=== PATIENT | female | born 1965 | race Caucasian/White ===

== ENCOUNTER 2016-05-23 05:37 | Day surgery (SDC) | payer OTHER ==
[~2016-05-23] VITALS: Ht 170.2 cm; Wt 85.3 kg
--- NOTE | ~2016-05-23 | O ---
[facility] [address] [place] [address] OPERATIVE REPORT Name: WELLINGTON GUZMAN Room #: DEP [facility] M..#: [id number] Admission: 05/23/16 Attend Phys: Ashanti Lauren Discharge: 05/23/16 Date of : 61 Report #: [id number] THIS REPORT FOR: //name// CC: Jinny Garcia DATE OF SERVICE: 05/23/2016 PROCEDURE: Right parotid sialendoscopy with removal of sialolith. PREOPERATIVE DIAGNOSES: 1. Recurrent right parotitis. 2. Right parotid sialolith. POSTOPERATIVE DIAGNOSES: 1. Recurrent right parotitis. 2. Right parotid sialolith. SURGEON: Ochoa Garcia MD FOOD CONCESSION MANAGER SURGEON: Dr. Pancho De La Paz whose assistance was needed for operation of instrumentation through the working channel of sialendoscope. ANESTHESIA: General. ESTIMATED BLOOD LOSS: 1 mL. COMPLICATIONS: None. SPECIMENS: Right parotid sialolith was sent for pathology and stone analysis. INDICATIONS FOR PROCEDURE: The patient is a 51-year-old lady who has a history of recurrent right parotitis. A CT scan revealed a sialolith in the distal aspect of the right parotid duct. It was decided that she would benefit from attempting endoscopic removal of this. The risks, benefits and alternatives were discussed with her and she agreed to proceed. DESCRIPTION OF PROCEDURE: After informed consent was obtained, the patient was taken the operating room and placed in supine position. She underwent general anesthesia with nasal intubation. She was prepped and draped in the usual fashion. A timeout was performed. The correct patient and procedure were identified. A plastic cheek retractor was placed into the oral cavity and a Radha retractor was used to open the oral cavity. Attention was directed towards the right parotid punctum. This was identified using loupe magnification. This was then dilated serially with dilation probes up to a size 3. Once the punctum was dilated, the sialendoscope was introduced into the [facility] [address] [place] [address] OPERATIVE REPORT Name: MEGANWELLINGTON Connie Room #: DEP [facility].#: [id number] Admission: 05/23/16 Attend Phys: Ashanti Lauren Discharge: 05/23/16 Date of : 61 Report #: [id number] punctum and into the parotid duct. Scope was then advanced into the duct. In the distal aspect of the duct, a large stone was noted. A basket was deployed through the working channel of the scope and this was used initially to fragment the stone. The endoscope was then withdrawn and parotid massage was used to evacuate some sludge from the duct and also to place the stone more distally within the duct. The endoscope was then reintroduced. A basket was then introduced and this was placed distal to the stone and then used to grasp the stone, which was then removed in the basket with the endoscope. The stone was then sent for pathology. The endoscope was then replaced into the duct. There was noted to be distal bifurcation, but no further stones were identified. A small amount of Kenalog 40 diluted in saline was then injected into the duct using the sialendoscope. At this point, the procedure was terminated. All instrumentation was removed from the patient. She was turned back over to the anesthesia service. She was successfully extubated in the operating room and taken to the recovery room in stable condition. All counts reported as correct and there were no complications during the procedure. DISPOSITION: The patient will be observed in the PACU until she meets criteria. She has been given prescriptions for Lortab, Zofran, and Augmentin. She will follow up in the clinic in approximately 1 week's time to review pathology. <ELECTRONICALLY SIGNED> By: Ochoa Garcia MD 05/26/16 1643 1749 1916 Ochoa Garcia MD /nt
[~2016-05-23 05:37] MED LIST: ALPRAZOLAM 0.0.25 M1 PO; ATORVASTATIN CA40 MG PO; LEVOTHYROXINE 0.15MG PO
[2016-05-23 09:58] VITALS: BP 126/76
[2016-05-23 13:22] VITALS: BP 126/76
== END 2016-05-23 14:25 | disposition home or self-care (01) ==
LOC: OR 05:37 → TBA 05:37 → OR 08:44
DX: K11.5 Sialolithiasis (principal); K11.20 Sialoadenitis, unspecified; E03.9 Hypothyroidism, unspecified; E78.00 Pure hypercholesterolemia, unspecified; F41.9 Anxiety disorder, unspecified; F17.210 Nicotine dependence, cigarettes, uncomplicated; Z90.710 Acquired absence of both cervix and uterus; Z90.49 Acquired absence of other specified parts of digestive tract; Z98.890 Other specified postprocedural states
CPT/HCPCS: 50010; 50101; 50386; 62110; 62900; 70005

== ENCOUNTER → 2019-06-24 | Outpatient (CLI) | payer BC, OTHER | LOC: SJCVCIMAG 09:45 | DX: I08.2 Rheumatic disorders of both aortic and tricuspid valves (principal); Z72.0 Tobacco use ==

== ENCOUNTER → 2019-06-30 | Outpatient (CLI) | payer BC, OTHER ==
[~2019-06-30] MED LIST changes: +ASA81BEC PO; +NORVASC 2.5 MG2.5 M1 PO
== END ==
LOC: SJCVCIMAG 08:04
DX: R07.9 Chest pain, unspecified (principal); I10 Essential (primary) hypertension; E78.00 Pure hypercholesterolemia, unspecified; E78.5 Hyperlipidemia, unspecified; F17.210 Nicotine dependence, cigarettes, uncomplicated

== ENCOUNTER → 2019-07-04 | Outpatient (CLI) | payer BC, OTHER ==
[~2019-07-04] VITALS: Ht 170.2 cm; Wt 87.5 kg
[2019-07-04 07:07] VITALS: BP 120/54
--- NOTE | 2019-07-04 13:33 | CATHLAB ---
[facility] [place] [address] INVASIVE PROCEDURE REPORT Name: WELLINGTON GUZMAN Room #: REG TYLER EverettPrasanth#: [id number] Admission: 07/04/19 Attend Phys: Shawn Kong MD Discharge: Date of : 61 Report #: [id number] THIS REPORT FOR: cc: Shania Valdivia MD,Shania Kong,Shawn Lind MD ~ APPROVED REPORT Study performed: 07/04/2019 07:48:30 Patient Details Patient Status: Out-Patient Room #: The patient is a 54 year-old female Event Personnel Shawn Kong Acting Teacher, Rachana Rose RN RN, Lilliana Newsome RTR, Soto Acuna Sherra RTR Monitor, Latoya Chambers RTR Senior Executive Compensation Analyst Procedures Performed Art Access - R femoral artery* Left Heart Cath w/or w/o Coronaries [id number] [facility] [id number] Initial Mod Sed Same Phys/QHP Gr [id number] 24354 Mod Sed Same Phys/QHP Ea [id number] Hemostasis with Manual pressure Indication Dyspnea, Positive stress test, Chest pain Risk Factors Hypercholesterolemia, Hypertension, Tobacco History () Procedure Narrative The Right Groin^ was infiltrated with subcutaneous anesthesia. A PINNACLE 4FR Sheath #[id number] sheath was inserted into the RFA^. Coronary angiography was performed using coronary diagnostic catheters. The right coronary system was accessed and visualized with a JR4 catheter. The left coronary system was accessed and visualized with a JL4 catheter. The left ventricle was accessed and visualized with a PIGTAIL catheter. Left ventricular/Aortic Valve gradient assessed via catheter pullback. Hemostasis was obtained with manual pressure following sheath removal without any complications. The patient tolerated the procedure well and there were no complications associated with the procedure. There was no hematoma. [facility] [address] [place] [address] INVASIVE PROCEDURE REPORT Name: WELLINGTON GUZMAN Room #: REG [facility]#: [id number] Admission: 07/04/19 Attend Phys: Shawn Kong MD Discharge: Date of : 61 Report #: [id number] Intraoperative Conscious Sedation Sedation start time: 820 Case end Time: 850 Fentanyl 50 mcg Versed 1 mg Fluoro Time: 5.20 minutes Dose: DAP 6382.00 cGycm2 1106 mGy Contrast Type and Amount: Omnipaque 60 ml Coronary Angiography The patient's coronary anatomy is left dominant. Diagnostic Cath Left Main The left main artery is a large-caliber vessel, patent with no flow-limiting lesions. LAD The LAD is a moderate size caliber vessel, traversing the anterior wall and wrapping around the apex. This vessel is angiographically normal. Diagonal 1 This is a small to moderate-sized caliber vessel, angiographically normal. Diagonal 2 This is a small to moderate-sized caliber vessel, angiographically normal. Circumflex This is a dominant vessel, patent with no flow-limiting lesions. OM1 This is a moderate-sized caliber vessel, divides into 2 branches. This vessel appears angiographically normal. OM2 This is a small to moderate-sized caliber vessel, angiographically normal. L PDA This is a moderate-sized caliber vessel, angiographically normal. Right Coronary The RCA is a small, nondominant vessel. Left Ventriculography Left Ventriculography was not performed. Ejection Fraction was 55-60% based off patient's Echocardiogram. An LVEDP was measured and there is no gradient across the outflow tract. Hemodynamics The aortic pressure is 124/66 mmHg with a mean of 102 mmHg. The left ventricular pressure is 146/16 mmHg with a mean of mmHg. The left ventricular end diastolic pressure is 28 mmHg. Pullback from the left ventricle to the aorta revealed no gradient across the aortic valve. Conclusion 1. Angiographically normal coronary arteries. 2. Left dominant system. [facility] [address] [place] [address] INVASIVE PROCEDURE REPORT Name: WELLINGTON GUZMAN Room #: REG [facility]#: [id number] Admission: 07/04/19 Attend Phys: Shawn Kong MD Discharge: Date of : 61 Report #: [id number] 3. Normal LV systolic function. 4. Recommend risk factor management. <ELECTRONICALLY SIGNED> By: Shawn Kong MD [id number] 30 Shawn Kong MD /RICHARD
== END | disposition home or self-care (01) ==
LOC: CATH 06:30
DX: R07.9 Chest pain, unspecified (principal); R94.39 Abnormal result of other cardiovascular function study; R06.00 Dyspnea, unspecified; I10 Essential (primary) hypertension; E78.00 Pure hypercholesterolemia, unspecified; E03.9 Hypothyroidism, unspecified; F41.9 Anxiety disorder, unspecified; F17.210 Nicotine dependence, cigarettes, uncomplicated; Z98.890 Other specified postprocedural states; Z79.899 Other long term (current) drug therapy; Z90.49 Acquired absence of other specified parts of digestive tract